=== PATIENT | female | born 1990 | race Caucasian/White ===

== ENCOUNTER 2019-07-08 11:58 | Inpatient (IN) | payer OTHER ==
[2019-07-08 12:53] LABS: APPEARANCE,URINE CLEAR; BILIRUBIN,URINE NEGATIVE (NEGATIVE); COLOR,URINE YELLOW; GLUCOSE, URINE NEGATIVE (NEGATIVE); KETONES,URINE NEGATIVE (NEGATIVE); LEUKOCYTE ESTERASE,URINE NEGATIVE (NEGATIVE); NITRITE,URINE NEGATIVE (NEGATIVE); PROTEIN,URINE NEGATIVE (NEGATIVE); URINE SPECIFIC GRAVITY 1.005; UROBILINOGEN,URINE NEGATIVE mg/dL (<2.0)
[2019-07-08] MEDS ORDERED: OXYTOCIN/NORMAL SALINE 20 UNIT/1,000 ML RTUINJ IV PRN (13:09)
[2019-07-08] MEDS ORDERED: RINGERS SOLUTION,LACTATED 1,000 ML IV ONE (13:09)
[2019-07-08 13:10] LABS: URINE AMPHETAMINES SCREEN NEGATIVE; URINE BARBITURATES SCREEN NEGATIVE; URINE BENZODIAZEPINES SCREEN NEGATIVE; URINE COCAINE SCREEN NEGATIVE; URINE MARIJUANA (THC) SCREEN NEGATIVE; URINE PHENCYCLIDINE SCREEN NEGATIVE
[2019-07-08] MEDS ORDERED: VANCOMYCIN HCL 1,000 MG in DEXTROSE 5%-WATER 250 ML IV SCH (13:15)
[2019-07-08 13:22] LABS: URINE METHADONE SCREEN NEGATIVE
[2019-07-08] MEDS ORDERED: MISOPROSTOL 0.2 MG TABLET ONE (14:03)
[2019-07-08] MEDS ORDERED: OXYTOCIN 10 UNIT/ML VIAL ONE (14:03)
[2019-07-08] MEDS ORDERED: VANCOMYCIN HCL INJ 1000 MG VIAL ONE (14:03)
[2019-07-08] MEDS ORDERED: LIDOCAINE 1% INJ-PF (10 MG/ML) 30 ML SDV ONE (14:03)
[2019-07-08] MEDS ORDERED: OXYTOCIN/NORMAL SALINE 20 UNIT/1,000 ML RTUINJ ONE (14:03)
[2019-07-08 14:16] LABS: HEMATOCRIT 35.6 % (36.0-47.0); HEMOGLOBIN 12.5 g/dL (12.0-15.5); MEAN CORPUSCULAR HEMOGLOBIN 31.4 pg (27.0-33.4); MEAN CORPUSCULAR HGB CONC 35.1 g/dL (32.0-36.0); MEAN CORPUSCULAR VOLUME 89 fl (80-97); PLATELET COUNT 166 10^3/uL (150-450); RED BLOOD COUNT 3.99 10^6/uL (3.72-5.28); RED CELL DISTRIBUTION WIDTH 14.3 % (11.5-14.0); WHITE BLOOD COUNT 11.1 10^3/uL (4.0-10.5)
[2019-07-08] MEDS: VANCOMYCIN HCL 1,000 MG in DEXTROSE 5%-WATER 250 ML IV SCH (14:35)
[2019-07-08] MEDS ORDERED: HYDROMORPHONE HCL INJ/PF 2 MG/ML AMPULE IV ONE (18:17)
[2019-07-08] MEDS ORDERED: PROMETHAZINE HCL INJ 25 MG/1 ML VIAL IV ONE (18:17)
[2019-07-08] MEDS ORDERED: PROMETHAZINE HCL INJ 25 MG/1 ML VIAL ONE (18:18)
[2019-07-08] MEDS ORDERED: HYDROMORPHONE HCL INJ/PF 2 MG/ML AMPULE ONE (18:18)
--- NOTE | 2019-07-08 18:32 | Admission Physical ---
Datetime Report Generated by CPN: 07/08/2019 18:32 CURRENT ADMISSION Chief Complaint: Uterine Contractions; Suspected Ruptured Membranes Chief Complaint Other: SROM Good FM , no VB Contractions not regular Admit Impression : Term, Intrauterine ; Active Labor; Ruptured Membranes Admit Plan: Admit to Unit; Initiate Labor Protocol; Initiate Labor Augmentation Protocol ALLERGIES Medication Allergies: Yes Medication Allergies: Penicillins (07/08/2019) Latex: No Latex Allergies OBSTETRICAL HISTORY EDC: 07/08/2019 00:00 : 1 Para: 0 Gestational Diabetes: No Rh Sensitization: No Incompetent Cervix: No TANYA: No Infertility: No ART Treatment: No Uterine Anomaly: No IUGR: No Hx Previous C/S: No Macrosomia: No Hx Loss/Stillborn: No PIH: No Hx : No Placenta Previa/Abruption: No Depression/PP Depression: No PTL/PROM: No Post Hemorrhage: No Obstetrical History Comments: g1: current SEE RECORDS Alcohol: No Marijuana : No Cocaine: No Other Illicit Drugs: No Cigarettes: Never Smoker. [id number] MEDICAL HISTORY Diabetes: No Blood Transfusion: No Pulmonary Disease (Asthma, TB): No Breast Disease: No Hypertension: No Supervisor In [employer] Surgery: No Heart Disease: No Hosp/Surgery: No Autoimmune Disorder: No Anesthetic Complications: No Kidney Disease: No Abnormal Pap Smear: No Neuro/Epilepsy: No Psychiatric Disorders: No Other Medical Diseases: No Hepatitis/Liver Disease: No Significant Family History: No Varicosities/Phlebitis: No Trauma/Violence : No Thyroid Dysfunction: No INFECTIOUS HISTORY Gonorrhea: No Genital Herpes: No Chlamydia: No Tuberculosis: No Syphilis: No Hepatitis: No HIV/AIDS Exposure: No Rash or Viral Illness: No HPV: No PHYSICAL EXAM General: Normal HEENT: Normal Neurologic: Normal Thyroid: Normal Heart: Normal Lungs: Normal Breast: Normal Back: Normal Abdomen: Normal Genitourinary Exam: Normal Extremities: Normal DTRs: Normal Pelvic Type: Adequate VAGINAL EXAM Dilatation: 2 Effacement: 50 Station: -3 Contraction Comments: Irregular MEMBRANES Pooling: Positive Membranes: Ruptured Amniotic Fluid Color: Clear FETUS A EGA: 40.0 Monitoring: External US FHR- Baseline: 135 Variability: Marked >25bpm Accelerations: 15X15 Decelerations: None FHR Category: Category I Presentation: Vertex Admit Comment: G1 at 40.0 wks EGA in active labor s/p SROM -Admit to LDR -NPO and IVFs: LR @ 125 cc/hr -GBS +, PCN allergy . Vancomycin 1 gm Q12 hrs -RI, RH negative -SROM at 1045 am, clear -anticipate PLANS FOR LABOR AND DELIVERY Labor and Delivery: Plan Pain Management: Epidural Feeding Preference: Breast Benefit of Breast Feed Discussed: Yes Circumcision: N/A INFORMED CONSENT Informed Consent Obtained: Vaginal Delivery; Section Delivery; Vacuum/Forceps Assist; Risks, Benefits and Alternatives Discussed Signature: with User ID: [email or web address] : with User ID: [email or web address]
[2019-07-08] MEDS ORDERED: EPHEDRINE SULFATE INJ 50 MG/1 ML AMPULE ONE (19:58)
[2019-07-08] MEDS ORDERED: FENTANYL/BUPIVACAINE/NS/PF 300 MCG/150 ML RTUINJ EPI ONE (19:58)
[2019-07-08] MEDS ORDERED: BUPIVACAINE HCL 0.25 % INJ/PF (2.5 MG/1 ML) 30 ML VIAL ONE (19:59)
[2019-07-08] MEDS ORDERED: ONDANSETRON HCL INJ/PF 4 MG/2 ML SDV ONE (20:09)
[2019-07-09] MEDS ORDERED: ACETAMINOPHEN 325 MG TABLET ONE (01:42)
[2019-07-09] MEDS: VANCOMYCIN HCL 1,000 MG in DEXTROSE 5%-WATER 250 ML IV SCH ×2 (02:25→15:19)
[2019-07-09] MEDS ORDERED: PROMETHAZINE HCL 25 MG TABLET PO PRN (03:52)
[2019-07-09] MEDS ORDERED: PSEUDOEPHEDRINE HCL 30 MG TABLET PO PRN (03:52)
[2019-07-09] MEDS ORDERED: DIPH/PERTUSS(ACELL)/TETANUS VAC/PF 0.5 ML SYR (>=10YO) IM PRN (03:52)
[2019-07-09] MEDS ORDERED: MEASLES,MUMPS&RUBELLA VACC/PF 0.5 ML VIAL SUBCUT PRN (03:52)
[2019-07-09] MEDS ORDERED: GLYCERIN/WITCH HAZEL LEAF 1 EACH MED..WIPE TP PRN (03:52)
[2019-07-09] MEDS ORDERED: ZOLPIDEM TARTRATE 5 MG TABLET PO PRN (03:52)
[2019-07-09] MEDS ORDERED: NA PHOS,M-B/NA PHOS,DI-BA (ADULT) 133 ML ENEMA PR PRN (03:52)
[2019-07-09] MEDS ORDERED: OXYTOCIN/NORMAL SALINE 20 UNIT/1,000 ML RTUINJ IV PRN (03:52)
[2019-07-09] MEDS ORDERED: ACETAMINOPHEN 650 MG SUPP.RECT PR PRN (03:52)
[2019-07-09] MEDS ORDERED: BENZOCAINE/MENTHOL AEROSOL SPRAY 56 ML TOP PRN (03:52)
[2019-07-09] MEDS ORDERED: DIBUCAINE 1% OINTMENT 28 GM TP PRN (03:52)
[2019-07-09] MEDS ORDERED: PROMETHAZINE HCL INJ 25 MG/1 ML VIAL IV PRN (03:52)
[2019-07-09] MEDS ORDERED: MAGNESIUM HYDROXIDE SUSP 30 ML UDCUP PO PRN (03:52)
[2019-07-09] MEDS ORDERED: DIPHENHYDRAMINE HCL 25 MG CAPSULE PO PRN (03:52)
[2019-07-09] MEDS ORDERED: PROMETHAZINE HCL 25 MG SUPP.RECT PR PRN (03:52)
[2019-07-09] MEDS ORDERED: ACETAMINOPHEN WITH CODEINE #3 TABLET PO PRN ×2 (03:52)
[2019-07-09] MEDS ORDERED: ACETAMINOPHEN WITH CODEINE #3 TABLET ONE ×2 (04:00)
[2019-07-09] MEDS ORDERED: IBUPROFEN 800 MG TABLET ONE (04:00)
[2019-07-09] MEDS ORDERED: IBUPROFEN 800 MG TABLET PO ONE (04:30)
--- NOTE | 2019-07-09 05:12 | Delivery Summary ---
Del Sum A-C Datetime Report Generated by CPN: 07/09/2019 05:11 DELIVERY PERSONNEL DELIVERY PERSONNEL: [id number] Delivery Doctor:: Aleida Day MD Labor and Delivery Nurse:: Margarita Camargo RNcharge rn Nurse:: YOUNG Hammond Doctor Of Naprapathic Medicine/COMPOSITION MIXER: Vanessa Green, ST MATERNAL INFORMATION Delivery Anesthesia: Epidural Medications After Delivery: Pitocin Drip 20 Units/1000ml NSS Estimated Blood Loss (ml): 100 Delivery QBL: 100 Maternal Complications: Maternal Fever; Prolonged Second Stage > 2 Hrs Provider Comments: Called to room, complete and +2 station. Pushed for about 1/2 hour and delivered a viable female in vertex presentation, ANDRES. After delivery of the head, the shoulder and rest of the body followed easily. Cord clamping delayed for 30 seconds as infant was vigorous. Both mother and baby stable. LABOR SUMMARY EDC: 07/08/2019 00:00 No. Babies in Womb: 1 Attempted: No Labor Anesthesia: Epidural LABOR INFORMATION Reason for Induction: Not Applicable Onset of Labor: 07/08/2019 10:45 Complete Dilatation: 07/09/2019 00:07 Oxytocin: Augmentation Group B Beta Strep: positive Antibiotics # of Doses: 2 Antibiotics Time of Last Dose: 224 Name of Antibiotic Given: vancomyocin (Annotations: Data stored by N on behalf of user) Steroids Given: None Reason Steroids Not Administered: Not Applicable MEMBRANES Membranes Rupture Method: Spontaneous Rupture of Membranes: 07/08/2019 10:45 Length of Rupture (hr): 16.88 Amniotic Fluid Color: Clear Amniotic Fluid Amount: Moderate Amniotic Fluid Odor: None STAGES OF LABOR Stage 1 hr: 13 Stage 1 min: 22 Stage 2 hr: 3 Stage 2 min: 31 Stage 3 hr: 0 Stage 3 min: 2 Total Time in Labor hr: 16 Total Time in Labor min: 55 VAGINAL DELIVERY Episiotomy: None Laceration #1: Vaginal Laceration Extension #1: First Degree Laceration Repair: Yes Laceration Repair Note: 3-0 chromic in running fashion Sponge Count Correct: Yes Sharps Count Correct: Yes CSECTION DELIVERY Primary Indication: N/A Secondary Indication: N/A CSection Incidence: N/A Labor: N/A Elective: N/A CSection Incision: N/A BABY A INFORMATION Delivery Date/Time: 07/09/2019 03:38 Method of Delivery: Vaginal Nurse Controlled Delivery: No Born in Route : No : N/A Forceps: N/A Vacuum Extraction: N/A Shoulder Dystocia : No PRESENTATION/POSITION BABY A Presentation: Cephalic Cephalic Presentation: Vertex Vertex Position: Left Occipital Anterior Breech Presentation: N/A PLACENTA INFORMATION BABY A Placenta Delivery Time : 07/09/2019 03:40 Placenta Method of Delivery: Spontaneous Placenta Status: Delivered SCORES BABY A Heart Rate 1 min: >100 bpm Resp Effort 1 min: Good Cry Reflex Irritability 1 min: Cough or Sneeze or Pulls Away Muscle Tone 1 min: Active Motion Color 1 min: Body Kane, Extremities Blue Resuscitation Effort 1 min: Tactile Stimulation SCORE 1 MIN: 9 Heart Rate 5 min: >100 bpm Resp Effort 5 min: Good Cry Reflex Irritability 5 min: Cough or Sneeze or Pulls Away Muscle Tone 5 min: Active Motion Color 5 min: Body Kane, Extremities Blue Resuscitation Effort 5 min: Tactile Stimulation SCORE 5 MIN: 9 INFANT INFORMATION BABY A Gestational Age at Delivery: 40.1 Gestational Status: Full Term- 39- 40.6 Weeks Infant Outcome : Liveborn Condition : Stable Infant Sex: Female IDENTIFICATION BABY A Verification Date/Time: 07/09/2019 03:50 ID Band Number: [id number] Mother's Name Verified: Yes RN Verifying : K Torito, RN/ D Bellavance, RN WEIGHT/LENGTH BABY A Infant Birthweight (gm): 3471 Weight (lb): 7 Infant Weight (oz): 10 Length (in): 20.00 Length (cm): 50.80 CORD INFORMATION BABY A No. Cord Vessels: 3 Nuchal Cord : N/A Cord Blood Taken: Yes-For Eval (Mom's Blood Type - or O+) Infant Suction: Mouth; Nose ASSESSMENT BABY A Infant Complications: None Physical Findings at Delivery: Within Normal Limits Respirations: Appears Normal Skin to Skin: Yes Skin to Skin Time (min): 60 [employer]/ALS Called : No Transferred To: Remains with Mother BABY B INFORMATION : N/A SIGNATURES Signature: with User ID: [email or web address] : with User ID: [email or web address]
[2019-07-09] MEDS: CLINDAMYCIN 900 MG/D5W RTU 900 MG/50 ML RTUPB IV SCH ×3 (06:32→09:12)
[2019-07-09] MEDS: PRENATAL VITAMIN W DHA CAPSULE PO SCH (10:11)
[2019-07-09] MEDS: DOCUSATE SODIUM 100 MG CAPSULE PO SCH ×2 (10:11→17:06)
[2019-07-09] MEDS: SENNOSIDES/DOCUSATE 8.6-50 MG 1 EACH TABLET PO SCH (10:12)
[2019-07-09] MEDS: FERROUS SULFATE 325 MG TABLET PO SCH ×2 (10:12→17:06)
[2019-07-09] MEDS: FAMOTIDINE 20 MG TABLET PO SCH ×2 (10:12→21:18)
[2019-07-09] MEDS: IBUPROFEN 800 MG TABLET PO SCH ×2 (13:47→21:17)
[2019-07-10] MEDS: IBUPROFEN 800 MG TABLET PO SCH ×3 (05:12→22:34)
[2019-07-10 06:32] LABS: HEMATOCRIT 30.2 % (36.0-47.0); HEMOGLOBIN 10.6 g/dL (12.0-15.5); MEAN CORPUSCULAR HEMOGLOBIN 31.4 pg (27.0-33.4); MEAN CORPUSCULAR HGB CONC 34.9 g/dL (32.0-36.0); MEAN CORPUSCULAR VOLUME 90 fl (80-97); PLATELET COUNT 136 10^3/uL (150-450); RED BLOOD COUNT 3.36 10^6/uL (3.72-5.28); RED CELL DISTRIBUTION WIDTH 14.6 % (11.5-14.0); WHITE BLOOD COUNT 12.8 10^3/uL (4.0-10.5)
[2019-07-10] MEDS: SENNOSIDES/DOCUSATE 8.6-50 MG 1 EACH TABLET PO SCH (09:15)
[2019-07-10] MEDS: PRENATAL VITAMIN W DHA CAPSULE PO SCH (09:15)
[2019-07-10] MEDS: DOCUSATE SODIUM 100 MG CAPSULE PO SCH ×2 (09:15→19:40)
[2019-07-10] MEDS: FERROUS SULFATE 325 MG TABLET PO SCH ×2 (09:15→19:41)
[2019-07-10] MEDS: FAMOTIDINE 20 MG TABLET PO SCH ×2 (09:21→22:34)
--- NOTE | 2019-07-10 12:26 | PDOC PROGRESS REPORT ---
Subjective-OB Progress Note for:: 07/10/19 Subjective: Pt doing well, no concerns. She reports light bleeding, reg diet and voiding without difficulty. Physical Exam (OB) Vital Signs: Temp Pulse Resp BP Pulse Ox 97.8 F 73 14 104/61 100 07/10/19 08:00 07/10/19 08:00 07/10/19 08:00 07/10/19 08:00 07/10/19 08:00 Intake & Output 07/09/19 07/10/19 07/11/19 06:59 06:59 06:59 Intake Total 250 880 Balance 250 880 Weight 75.5 kg - Lochia Lochia Amount: Scant < 10 ml Lochia Color: Rubra/Red - Abdomen Description: Soft Hernia Present: No Fundal Description: Firm, Midline Fundal Height: u/u - u/2 Objective-Diagnostic Laboratory: 07/10/19 06:00 07/10/19 06:00 WBC 12.8 H RBC 3.36 L Hgb 10.6 L Hct 30.2 L MCV 90 MCH 31.4 MCHC 34.9 RDW 14.6 H Plt Count 136 L Assessment and Plan(PN) - Assessment and Plan (1) Vaginal delivery Is this a current diagnosis for this admission?: Yes (2) Obstetrical laceration, first degree Is this a current diagnosis for this admission?: Yes (3) Spontaneous rupture of amniotic membranes Is this a current diagnosis for this admission?: Yes - Time Spent with Patient Time with patient: Less than 15 minutes Medications reviewed and adjusted accordingly: Yes - Disposition Anticipated Discharge: Home Within: within 24 hours
[2019-07-11] MEDS: IBUPROFEN 800 MG TABLET PO SCH (05:21)
[2019-07-11 08:32] VITALS: BP 110/71
--- NOTE | 2019-07-11 09:22 | PDOC DISCHARGE SUMMARY ---
Impression - Admit/DC Date/PCP Admission Date/Primary Care Provider: 07/08/19 13:05 Discharge Date: 07/11/19 - Discharge Diagnosis (1) Vaginal delivery Is this a current diagnosis for this admission?: Yes (2) Obstetrical laceration, first degree Is this a current diagnosis for this admission?: Yes (3) Spontaneous rupture of amniotic membranes Is this a current diagnosis for this admission?: Yes - Additional Information Resuscitation Status: Full Code Discharge Diet: Regular Discharge Activity: Balance Activity w/Rest, Pelvic Rest HPI Gestational Age: 40.0 Reason(s) for Admission: Onset of Labor Procedures: NST Intrapartum Procedure(s): Spontaneous Vaginal Delivery Complication(s): Laceration-Vaginal Laceration-Degree: 1st Results Laboratory Results: WBC 12.8 10^3/uL (4.0-10.5) H 07/10/19 06:00 RBC 3.36 10^6/uL (3.72-5.28) L 07/10/19 06:00 Hgb 10.6 g/dL (12.0-15.5) L 07/10/19 06:00 Hct 30.2 % (36.0-47.0) L 07/10/19 06:00 MCV 90 fl (80-97) 07/10/19 06:00 MCH 31.4 pg (27.0-33.4) 07/10/19 06:00 MCHC 34.9 g/dL (32.0-36.0) 07/10/19 06:00 RDW 14.6 % (11.5-14.0) H 07/10/19 06:00 Plt Count 136 10^3/uL (150-450) L 07/10/19 06:00 Urine Color YELLOW 07/08/19 12:09 Urine Appearance CLEAR 07/08/19 12:09 Urine pH 8.0 (5.0-9.0) 07/08/19 12:09 Ur Specific [place] 1.005 07/08/19 12:09 Urine Protein NEGATIVE mg/dL (NEGATIVE) 07/08/19 12:09 Urine Glucose (UA) NEGATIVE mg/dL (NEGATIVE) 07/08/19 12:09 Urine Ketones NEGATIVE mg/dL (NEGATIVE) 07/08/19 12:09 Urine Blood NEGATIVE (NEGATIVE) 07/08/19 12:09 Urine Nitrite NEGATIVE (NEGATIVE) 07/08/19 12:09 Urine Bilirubin NEGATIVE (NEGATIVE) 07/08/19 12:09 Urine Urobilinogen NEGATIVE mg/dL (<2.0) 07/08/19 12:09 Ur Leukocyte Esterase NEGATIVE (NEGATIVE) 07/08/19 12:09 Urine Ascorbic Acid 20 (NEGATIVE) H 07/08/19 12:09 Membranes Rupture POSITIVE (NEGATIVE) H 07/08/19 12:15 Urine Opiates Screen NEGATIVE 07/08/19 12:09 Urine Methadone Screen NEGATIVE 07/08/19 12:09 Ur Barbiturates Screen NEGATIVE 07/08/19 12:09 Ur Phencyclidine Scrn NEGATIVE 07/08/19 12:09 Ur Amphetamines Screen NEGATIVE 07/08/19 12:09 U Benzodiazepines Scrn NEGATIVE 07/08/19 12:09 Urine Cocaine Screen NEGATIVE 07/08/19 12:09 U Marijuana (THC) Screen NEGATIVE 07/08/19 12:09 RPR NONREACTIVE (NONREACTIVE) 07/08/19 13:47 Blood Type O NEGATIVE 07/08/19 13:47 Antibody Screen NEGATIVE 07/08/19 13:47 Plan Plan of Treatment: f/u at [facility] 4wks Time Spent: Less than 30 Minutes
[2019-07-11] MEDS: DOCUSATE SODIUM 100 MG CAPSULE PO SCH (09:45)
[2019-07-11] MEDS: PRENATAL VITAMIN W DHA CAPSULE PO SCH (09:45)
[2019-07-11] MEDS: SENNOSIDES/DOCUSATE 8.6-50 MG 1 EACH TABLET PO SCH (09:46)
[2019-07-11] MEDS: FERROUS SULFATE 325 MG TABLET PO SCH (09:46)
[2019-07-11] MEDS: FAMOTIDINE 20 MG TABLET PO SCH (10:55)
== END 2019-07-11 13:18 | disposition home or self-care (01) | DRG 806 ==
LOC: LC 11:58 → LR 13:05 → 2S 07-09 08:06
PROVIDERS: ADMIT Obstetrics & Gynecology; ATTEND Obstetrics & Gynecology
PROC: 10E0XZZ Delivery of Products of Conception, External Approach (ICD-10-PCS; principal; 2019-07-09)
PROC: 0HQ9XZZ Repair Perineum Skin, External Approach (ICD-10-PCS; 2019-07-09)
DX: O99.824 Streptococcus B carrier state complicating childbirth (principal); O75.2 Pyrexia during labor, not elsewhere classified; Z37.0 Single live birth; O63.1 Prolonged second stage (of labor); O70.0 First degree perineal laceration during delivery; Z3A.40 40 weeks gestation of pregnancy
CPT/HCPCS: 36415; 80307; 81005; 84112; 85027; 86592; 86850; 86900; 86901; J1170; J2405; J2550; J2590; J3010; J3370; J3490; J7060